=== PATIENT | female | born 1980 | race Caucasian/White ===

== ENCOUNTER 2020-10-13 09:57 | Emergency (ER) | payer OTHER ==
[2020-10-13 10:11] VITALS: BP 105/72; PULSE 87; TEMP 98.2; BMI 26.6
== END 2020-10-13 11:00 | disposition home or self-care (01) ==
LOC: JERFT 09:57
DX: J30.9 Allergic rhinitis, unspecified (principal)
CPT/HCPCS: 71046-TC-FY; 99284-25

== ENCOUNTER 2022-12-11 22:44 | Emergency (ER) | payer OTHER ==
[2022-12-11 22:50] VITALS: BP 122/77; PULSE 86; RESP 18; TEMP 98.4; BMI 25.7
[2022-12-12] MEDS ORDERED: ACETAMINOPHEN 500 MG TABLET (FP) PO ONE (00:12)
[2022-12-12] MEDS ORDERED: ACETAMINOPHEN 500 MG TABLET (FP) ONE (00:15)
[2022-12-12] MEDS ORDERED: DIPHTH,PERTUSS(ACELL),TET 0.5 ML DISP.SYRIN IM ONE ×2 (01:20→01:33)
[2022-12-12] MEDS ORDERED: BACITRACIN 0.9 GM PACKET ONE (01:39)
== END 2022-12-12 02:26 | disposition home or self-care (01) ==
LOC: JER 22:44
PROC: 0HQFXZZ Repair Right Hand Skin, External Approach (ICD-10-PCS; principal; 2022-12-11)
PROC: 3E0234Z Introduction of Serum, Toxoid and Vaccine into Muscle, Percutaneous Approach (ICD-10-PCS; 2022-12-12)
DX: S61.411A Laceration without foreign body of right hand, initial encounter (principal); M79.641 Pain in right hand; W22.8XXA Striking against or struck by other objects, initial encounter
CPT/HCPCS: 12001-25; 73130-TC-RT-FY; 90471; 90715; 99283-25